=== PATIENT | female | born 1940 | race Caucasian/White ===

== ENCOUNTER 2018-03-22 13:41 | Outpatient (CLI) | payer MEDICARE, OTHER ==
--- NOTE | 2018-03-23 08:55 | Mammography Report ---
Procedure Date: 03/22/2018 Accession Number: [id number] / [id number] Procedure: MICHELLE - Screening Mammo Dig LT CPT Code: FULL RESULT: EXAM: Screening Mammo Dig LT DATE: 03/22/2018 2:25 PM CLINICAL HISTORY: Status post right mastectomy TECHNIQUE: Unilateral left CC, exaggerated CC, and MLO projections COMPARISON: 04/27/2016, 03/20/2014, 03/06/2013, 08/21/2009 FINDINGS: The breast tissue is heterogeneously dense. There is no dominant mass, architectural distortion, skin thickening, suspicious microcalcifications or interval change. IMPRESSION: Negative left breast. BI-RADS 1. Suggest return to routine screening in 12 months.
== END 2018-03-22 13:42 | disposition home or self-care (01) ==
LOC: DI 13:41
DX: Z12.31 Encounter for screening mammogram for malignant neoplasm of breast (principal); Z90.11 Acquired absence of right breast and nipple